=== PATIENT | female | born 2000 | race Caucasian/White ===

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

== ENCOUNTER → 2023-06-01 13:57 | Outpatient (BNVA) | payer BC, SELFPAY | PROVIDERS: PCP Family Medicine; Visit Provider Nurse Practitioner Family | DX: R39.9 Unspecified symptoms and signs involving the genitourinary system (principal); R31.9 Hematuria, unspecified | CPT/HCPCS: 81000; 87086 ==